=== PATIENT | female | born 1980 | race Two or more races ===

== ENCOUNTER → 2022-08-13 07:59 | Outpatient (BNVA) | payer OTHER, SELFPAY | PROVIDERS: PCP Internal Medicine; Visit Provider Psychiatry & Neurology Neurology | DX: G43.119 Migraine with aura, intractable, without status migrainosus (principal); M54.2 Cervicalgia | CPT/HCPCS: 99212 ==

== ENCOUNTER → 2023-03-04 13:57 | Outpatient (BNVA) | payer OTHER, SELFPAY | PROVIDERS: PCP Internal Medicine; Visit Provider Psychiatry & Neurology Neurology | DX: G43.119 Migraine with aura, intractable, without status migrainosus (principal); G43.719 Chronic migraine without aura, intractable, without status migrainosus; M54.2 Cervicalgia | CPT/HCPCS: 99212 ==

== ENCOUNTER 2023-04-13 18:44 | Outpatient (REF) | payer OTHER, SELFPAY ==
--- NOTE | ~2023-04-13 | MR_ITS ---
EXAMINATION: MR BRAIN WITHOUT CONTRAST CLINICAL INFORMATION: Chronic migraines. COMPARISON: None. TECHNIQUE: Multiplanar, multisequence imaging of the brain was performed without contrast. FINDINGS: No diffusion abnormalities are identified to suggest an acute or subacute infarct. The ventricles are normal in size. No mass effect or midline shift is seen. No brain parenchymal signal abnormality is noted. No extra-axial fluid collections are seen. The brainstem and cerebellum are normal. The gradient refocused acquisition is normal. The craniovertebral junction, marrow signal, and midline structures are normal. The major intracranial flow voids at the level of the [place] are preserved. The dural venous sinus flow voids are maintained. The mastoid air cells are well aerated. There is a small retention cyst in one of the left anterior ethmoid air cells. The remaining paranasal sinuses are fairly well aerated. MR/MR head/brain wo con IMPRESSION: Normal MRI of the brain. No acute process.
== END 2023-04-13 18:45 | disposition home or self-care (01) ==
LOC: HO.MRI 18:44
PROVIDERS: PCP Internal Medicine; Visit Provider Psychiatry & Neurology Neurology
DX: G43.719 Chronic migraine without aura, intractable, without status migrainosus (principal); H53.8 Other visual disturbances
CPT/HCPCS: 70551

== ENCOUNTER 2023-05-14 08:58 | Outpatient (AMB) | payer BC, OTHER, SELFPAY ==
--- NOTE | 2023-05-14 09:03 | MHC.OFFVIS ---
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 Pt reports daily pounding bitemporal and frontal headache that associated with photophobia, phonophobia. Pt is on magneisum 400 mg and amitriptyline 25 mg qHS, Vit B 2 400 mg q daily. Amitripyline did help her sleep better but not helpful to prevent migraine. She takes Ubrelvy 100 mg when she has bad migraine, but still takes time to relieve her headache. She needs to rest and sleep in dark room. PT neck did not help much. In the past she was tried on topiramate( blurry vision), nurtec( insurance did not approve ), sumatriptan(side effects), fioricet. She reports sleeps better with amiriptyline, mild snoring and has daytime fatigue. [facility] Medical History Blurry vision Chronic migraine without aura, intractable, without status migrainosus G6PD deficiency Hiatal hernia Surgical History H/O gastric sleeve H/O gastric sleeve Hx of hernia repair Family History Father Asthma Allergies HTN (hypertension) Mother Diabetes Father Depression Social History Alcohol intake: never Patient Tobacco Use Status: Never used Tobacco Review of Systems Const All systems reviewed & are unremarkable except as noted in HPI and below Physical Exam Vital Signs: Last Vital Signs Pulse 73 05/14/23 09:04 BP 102/70 05/14/23 09:04 Pulse Ox 97 07/27/23 09:04 Oxygen Delivery Method Room Air 05/14/23 09:04 Const General: cooperative, healthy appearing and comfortable Nutritional Appearance: obese Orientation/consciousness: patient oriented x3 Limitations: no limitations Eyes Pupils: Equal, round and reactive pupils present Neck Other: tightness and tenderness Neuro Other: left splenius and levator tightness laterocollis General: patient oriented x3, gait normal, tone normal, moves all extremities and no focal motor deficits Cranial nerves: Yes Facial sensation intact/muscles of mastication intact, Yes Equal, round and reactive pupils present, Yes Bilaterally intact EOM present, Yes Nystagmus not present, Yes Normal facial strength present, Yes Midline tongue present, Yes Symmetric palate elevation present, Yes Ability to bilaterally rotate head present and Yes Ability to bilaterally elevate shoulders present Cognition (Neuro): normal cognition Gait exam (Neuro): Normal gait present Motor exam (neuro): 5/5 motor strength present throughout Assessment & Plan Assessment & Plan (1) Migraine with aura, intractable, without status migrainosus: Code(s): G43.119 - Migraine with aura, intractable, without status migrainosus (2) Cervicalgia: Code(s): M54.2 - Cervicalgia (3) Chronic migraine without aura, intractable, without status migrainosus: Code(s): G43.719 - Chronic migraine without aura, intractable, without status migrainosus (4) Snoring: Code(s): R06.83 - Snoring (5) Daytime sleepiness: Code(s): R40.0 - Somnolence Plan Advised patient to continue to take amitriptyline 25 mg and magnesium 400 mg qhs. Continue to take vitamin B2 400mg qam and Ubrelvy 100 mg as needed to treat acute migraine. Start propranolol 10 mg BID. Patient did not tolerate triptans. Will consider Botox at the next visit. Advised patient to undergo home sleep study to r/o sleep apnea. Will f/u of sleep study result for appropriate treatment options. Orders: Orders RT home sleep study Today R06.83 - Snoring, R40.0 - Somnolence Medications: New propranolol 10 mg PO BID 30 days 60 tabs 1RF Coding Level of Care Code Est Pt Level 4 (84999) Diagnoses Migraine with aura, intractable, without status migrainosus G43.119 Cervicalgia M54.2 Chronic migraine without aura, intractable, without status migrainosus G43.719 Snoring R06.83 Daytime sleepiness R40.0
[2023-05-14 09:04] VITALS: BP 102/70; PULSE 73; O2SAT 97; BMI 36.8
== END 2023-05-14 09:27 | disposition home or self-care (01) ==
PROVIDERS: Visit Provider Nurse Practitioner Family
DX: G43.119 Migraine with aura, intractable, without status migrainosus (principal); M54.2 Cervicalgia; G43.719 Chronic migraine without aura, intractable, without status migrainosus; R06.83 Snoring; R40.0 Somnolence
CPT/HCPCS: 99214

== ENCOUNTER → 2023-05-14 08:58 | Outpatient (BNVA) | payer OTHER, SELFPAY | PROVIDERS: Visit Provider Nurse Practitioner Family | DX: G43.119 Migraine with aura, intractable, without status migrainosus (principal); G43.719 Chronic migraine without aura, intractable, without status migrainosus; M54.2 Cervicalgia; R06.83 Snoring; R40.0 Somnolence | CPT/HCPCS: 99212 ==

== ENCOUNTER → 2023-06-30 11:53 | Outpatient (REF) | payer BC, OTHER, SELFPAY | LOC: HO.SL 11:53 | PROVIDERS: PCP Internal Medicine; Visit Provider Nurse Practitioner Family | DX: G47.33 Obstructive sleep apnea (adult) (pediatric) (principal); R40.0 Somnolence; R06.83 Snoring | CPT/HCPCS: 95806 ==

== ENCOUNTER → 2023-06-30 13:22 | Outpatient (BNV) | payer BC, OTHER, SELFPAY | PROVIDERS: PCP Internal Medicine; Visit Provider Psychiatry & Neurology Neurology | DX: G47.33 Obstructive sleep apnea (adult) (pediatric) (principal) | CPT/HCPCS: 95806 ==

== ENCOUNTER 2023-07-23 08:10 | Outpatient (AMB) | payer BC, OTHER, SELFPAY ==
--- NOTE | 2023-07-23 08:15 | A.OFFVIS_ITS ---
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 Pt reports daily pounding bitemporal and frontal headache with migraine frequency has improved with propranolol BID. She has 4 headache with migraine days per week, but the headache intensity has not improved. Pt uses Ubrelvy 100 mg but still it takes time to relieve her headache. Resting in the dark room help to relieve headache. Pt is on magneisum 400 mg and amitriptyline 25 mg qHS, Vit B 2 400 mg q daily. In the past she was tried on topiramate( blurry vision), nurtec( insurance did not approve ), sumatriptan(side effects), fioricet. Pt underwent home sleep study. The home sleep study result was mild degree of sleep apnea. The AHI was 9/hr and oxygen sunitha was 76%. The total duration of O2 sat <88% was 11 min. APAP 5-23sbH6K ordered. [facility] Medical History Blurry vision Chronic migraine without aura, intractable, without status migrainosus Hiatal hernia G6PD deficiency Surgical History Hx of hernia repair H/O gastric sleeve H/O gastric sleeve Family History Father Asthma Allergies HTN (hypertension) Mother Diabetes Father Depression Social History (Updated 07/23/23 @ 08:19 by Mahnaz Faustin CMA) Alcohol intake: never Patient Tobacco Use Status: Never used Tobacco Use of substances other than those prescribed or required for medical reasons: No Review of Systems Const All systems reviewed & are unremarkable except as noted in HPI and below Physical Exam Const General: cooperative, healthy appearing and comfortable Nutritional Appearance: obese Orientation/consciousness: patient oriented x3 Limitations: no limitations Eyes Pupils: Equal, round and reactive pupils present Neck Other: tightness and tenderness Neuro Other: left splenius and levator tightness laterocollis General: patient oriented x3, gait normal, tone normal, moves all extremities and no focal motor deficits Cranial nerves: Yes Facial sensation intact/muscles of mastication intact, Yes Equal, round and reactive pupils present, Yes Bilaterally intact EOM present, Yes Nystagmus not present, Yes Normal facial strength present, Yes Midline tongue present, Yes Symmetric palate elevation present, Yes Ability to bilaterally rotate head present and Yes Ability to bilaterally elevate shoulders present Cognition (Neuro): normal cognition Gait exam (Neuro): Normal gait present Motor exam (neuro): 5/5 motor strength present throughout Assessment & Plan Assessment & Plan (1) Cervicalgia: Code(s): M54.2 - Cervicalgia (2) Chronic migraine without aura, intractable, without status migrainosus: Code(s): G43.719 - Chronic migraine without aura, intractable, without status migrainosus (3) Sleep apnea: Comment: Mild degree of sleep apnea. The AHI was 9/hr and oxygen sunitha was 76%. Code(s): G47.30 - Sleep apnea, unspecified Plan Advised patient to continue to take amitriptyline 25 mg and magnesium 400 mg qhs, vitamin B2 400 mg and propranolol 10 mg BID. Continue to take Ubrelvy 100 mg as needed to treat acute migraine. Advised patient to try Botox injection q 3 months for chronic migraine. Patient did not tolerate triptans. Start APAP 5-24gmO1M. Stressed compliance, use CPAP nightly and more than 4 hrs. Wt reduction advised. Medications: New onabotulinumtoxinA (Botox) Inject 155 units IM across forehead, scalp and neck 200 units IM ONCE 90 days 1 ea 6RF chronic migraine G43.719 - Chronic migraine without aura, intractable, without status migrainosus Coding Level of Care Code Est Pt Level 4 (73962) Diagnoses Cervicalgia M54.2 Chronic migraine without aura, intractable, without status migrainosus G43.719 Sleep apnea G47.30
[2023-07-23 08:20] VITALS: BP 110/70; PULSE 73; O2SAT 99
== END 2023-07-23 08:31 | disposition home or self-care (01) ==
PROVIDERS: PCP Internal Medicine; Visit Provider Nurse Practitioner Family
DX: M54.2 Cervicalgia (principal); G43.719 Chronic migraine without aura, intractable, without status migrainosus; G47.30 Sleep apnea, unspecified
CPT/HCPCS: 99214

== ENCOUNTER → 2023-07-23 08:10 | Outpatient (BNVA) | payer BC, OTHER, SELFPAY | PROVIDERS: PCP Internal Medicine; Visit Provider Nurse Practitioner Family | DX: G43.719 Chronic migraine without aura, intractable, without status migrainosus (principal); G47.30 Sleep apnea, unspecified; M54.2 Cervicalgia | CPT/HCPCS: 99212 ==

== ENCOUNTER 2023-10-20 09:11 | Outpatient (AMB) | payer BC, OTHER, SELFPAY ==
--- NOTE | 2023-10-20 09:20 | MHC.OFFVIS ---
Intake Vital Signs 10/20/23 09:34 Height 5 ft 6 in Weight 238 lb 6 oz BMI 38.5 BP 114/76 Blood Pressure Location Rt brachial Position Sitting Respiration 16 Pulse 72 Pulse Source Pulse Oximeter Pulse Oximetry (%) 97 Oxygen Delivery Method Room Air Intake Visit Reasons: Botox appt-Confirmed Intake Note: Pt presents for Botox injections. Quarantine Officer Required: No Allergies levofloxacin [From Levaquin] Allergy (Mild, Verified 10/20/23 09:20) Unknown Sulfa (Sulfonamide Antibiotics) Allergy (Mild, Verified 10/20/23 09:20) Unknown HPI HPI Comments History of Present Illness Details ? 43y/o female comes for treatment of migraines with botox. ??? Most frequent reported adverse reactions following injection of botox for chronic migraine include neck pain (9%), headache(5%), eyelid ptosis(4%), migraine(4%), muscular weakness(4%), musculuskeletal stiffness(4%), bronchitis(3%), injection site pain (3%), musculoskeletal pain(3%), myalgia(3%), facial paresis(2%), HTN(2%) and muscle spasms(2%) were discussed in detail. ??? Botulinum toxin typeA 200units Lot no [id number] expiration February 2026 was diluted with 4 cc of normal saline . ??? Muscles injected- ??? Frontalis 4 sites ??? Procerus 1 site ??? Publicity Director- 2 sites ??? Temporalis- 8 sites ??? Occipitalis- 6 sites ??? Cervical paraspinals- 4 sites ??? Trapezius- 6 sites- 10 units each ??? 5 units each in 31 site ??? Total use- 185units ??? Discarded-15units [facility] Medical History Blurry vision Chronic migraine without aura, intractable, without status migrainosus Hiatal hernia G6PD deficiency Surgical History Hx of hernia repair H/O gastric sleeve H/O gastric sleeve Family History Father Asthma Allergies HTN (hypertension) Mother Diabetes Father Depression Social History Alcohol intake: never Patient Tobacco Use Status: Never used Tobacco Physical Exam Vital Signs: Last Vital Signs Pulse 72 10/20/23 09:34 Resp 16 10/20/23 09:34 BP 114/76 10/20/23 09:34 Pulse Ox 97 10/20/23 09:34 Oxygen Delivery Method Room Air 10/20/23 09:34 BMI result Body Mass Index 38.5 Const General: cooperative, healthy appearing and comfortable Nutritional Appearance: obese Orientation/consciousness: patient oriented x3 Limitations: no limitations Neck Other: tightness and tenderness Neuro Other: left splenius and levator tightness laterocollis General: patient oriented x3, gait normal, tone normal, moves all extremities and no focal motor deficits Cognition (Neuro): normal cognition Gait exam (Neuro): Normal gait present Motor exam (neuro): 5/5 motor strength present throughout Office Procedures Botulinum toxin Injection 69564 - Migraine Procedure code (CPT) selection complete Office Meds onabotulinumtoxinA 200 unit solution for injection Performing Provider: Comfort Tariq MD Performing Location: [facility] [place] [facility] Administered by: Comfort Tariq MD on 10/20/23 10:13 Dose Route Admin Location Dispensed Lot Number Expiration Date [facility] [place]NOTE 2[place] [employer] 185 unit subcut 200 units [id number] 02/17/24 6882-9587-92 ALLERGAN/BOTOX Comments: see HPI Assessment & Plan Assessment & Plan (1) Chronic migraine without aura, intractable, without status migrainosus: Code(s): G43.719 - Chronic migraine without aura, intractable, without status migrainosus Plan Patient tolerated the procedure well she will call with any side effects Orders: Orders AMB Botulinum toxin Injection - Patient Supplied Today G43.719 - Chronic migraine without aura, intractable, without status migrainosus Coding Level of Care Code Est Pt Level 1 (19186) Diagnoses Chronic migraine without aura, intractable, without status migrainosus G43.719 CPT Codes Botox Injection - Botox 3: 30202 - Migraine ([id number])
[2023-10-20 09:34] VITALS: BP 114/76; PULSE 72; RESP 16; O2SAT 97; BMI 38.5
== END 2023-10-20 10:00 | disposition home or self-care (01) ==
PROVIDERS: PCP Internal Medicine; Visit Provider Psychiatry & Neurology Neurology
DX: G43.719 Chronic migraine without aura, intractable, without status migrainosus (principal)
CPT/HCPCS: 64615

== ENCOUNTER → 2023-10-20 09:11 | Outpatient (BNVA) | payer BC, OTHER, SELFPAY | PROVIDERS: PCP Internal Medicine; Visit Provider Psychiatry & Neurology Neurology | DX: G43.719 Chronic migraine without aura, intractable, without status migrainosus (principal) | CPT/HCPCS: 64615; 99211; J0585 ==

== ENCOUNTER 2024-01-25 08:06 | Outpatient (AMB) | payer OTHER, SELFPAY ==
--- NOTE | 2024-01-25 08:17 | A.OFFVIS_ITS ---
Intake Vital Signs 01/25/24 08:18 Height 5 ft 6 in Weight 238 lb BMI 38.4 BP 108/76 Blood Pressure Location Rt brachial Position Sitting Respiration 16 Pulse 77 Pulse Source Pulse Oximeter Pulse Oximetry (%) 98 Oxygen Delivery Method Room Air Intake Visit Reasons: Botox appt-CONF Intake Note: Pt presents for Botox injections. Syrup Mixer Required: No Allergies levofloxacin [From Levaquin] Allergy (Mild, Verified 01/25/24 08:17) Unknown Sulfa (Sulfonamide Antibiotics) Allergy (Mild, Verified 01/25/24 08:17) Unknown Medication List - Last Reconciled 01/25/24 by Comfort Tariq MD amitriptyline 25 mg PO BEDTIME bupropion HCl XL 150 mg PO QAM magnesium oxide 400 mg PO BEDTIME onabotulinumtoxinA (Botox) 200 units IM ONCE 90 days pantoprazole 40 mg PO BID propranolol 10 mg PO BID 30 days riboflavin (vitamin B2) 400 mg PO QAM ubrogepant (Ubrelvy) 100 mg PO ONCE PRN MDD 1 tab HPI HPI Comments History of Present Illness Details ? 43y/o female comes for treatment of migraines with botox. ??? Most frequent reported adverse reactions following injection of botox for chronic migraine include neck pain (9%), headache(5%), eyelid ptosis(4%), migraine(4%), muscular weakness(4%), musculuskeletal stiffness(4%), bronchitis(3%), injection site pain (3%), musculoskeletal pain(3%), myalgia(3%), facial paresis(2%), HTN(2%) and muscle spasms(2%) were discussed in detail. ??? Botulinum toxin typeA 200units Lot no [id number] expiration March 2026 was diluted with 4 cc of normal saline . ??? Muscles injected- ??? Frontalis 4 sites ??? Procerus 1 site ??? Sewing Machine Operator Plastic Zipper- 2 sites ??? Temporalis- 8 sites ??? Occipitalis- 6 sites ??? Cervical paraspinals- 4 sites ??? Trapezius- 6 sites- 10 units each ??? 5 units each in 31 site ??? Total use- 185units ??? Discarded-15units [facility] Medical History Blurry vision Chronic migraine without aura, intractable, without status migrainosus Hiatal hernia G6PD deficiency Surgical History Hx of hernia repair H/O gastric sleeve H/O gastric sleeve Family History Father Asthma Allergies HTN (hypertension) Mother Diabetes Father Depression Social History Alcohol intake: never Patient Tobacco Use Status: Never used Tobacco Physical Exam Vital Signs: Last Vital Signs Pulse 77 01/25/24 08:18 Resp 16 01/25/24 08:18 BP 108/76 01/25/24 08:18 Pulse Ox 98 01/25/24 08:18 Oxygen Delivery Method Room Air 01/25/24 08:18 BMI result Body Mass Index 38.4 Const General: cooperative, healthy appearing and comfortable Nutritional Appearance: obese Orientation/consciousness: patient oriented x3 Limitations: no limitations Neck Other: tightness and tenderness Neuro Other: left splenius and levator tightness laterocollis General: patient oriented x3, gait normal, tone normal, moves all extremities and no focal motor deficits Cognition (Neuro): normal cognition Gait exam (Neuro): Normal gait present Motor exam (neuro): 5/5 motor strength present throughout Office Procedures Botulinum toxin Injection 62654 - Migraine Procedure code (CPT) selection complete Office Meds onabotulinumtoxinA 200 unit solution for injection Performing Provider: Comfort Tariq MD [place] [facility] [place] [facility] Administered by: Comfort Tariq MD on 01/25/24 08:53 Dose Route Admin Location Dispensed Lot Number Expiration Date [facility] Auger Press Operator 185 unit IM 200 units [id number] 03/19/26 7110-8205-05 ALLERGAN/BOTOX Comments: see HPI Assessment & Plan Assessment & Plan (1) Chronic migraine without aura, intractable, without status migrainosus: Code(s): G43.719 - Chronic migraine without aura, intractable, without status migrainosus Plan Patient tolerated the procedure well she will call with any side effects Orders: Orders AMB Botulinum toxin Injection Today G43.719 - Chronic migraine without aura, intractable, without status migrainosus Medications: New onabotulinumtoxinA 200 units IM ONCE 1 ea 0RF migraine G43.719 - Chronic migraine without aura, intractable, without status migrainosus Coding Level of Care Code Est Pt Level 1 (29770) Diagnoses Chronic migraine without aura, intractable, without status migrainosus G43.719 CPT Codes Botox Injection - Botox 3: 68616 - Migraine ([id number])
[2024-01-25 08:18] VITALS: BP 108/76; PULSE 77; RESP 16; O2SAT 98; BMI 38.4
== END 2024-01-25 08:47 | disposition home or self-care (01) ==
PROVIDERS: PCP Internal Medicine; Visit Provider Psychiatry & Neurology Neurology
DX: G43.719 Chronic migraine without aura, intractable, without status migrainosus (principal)
CPT/HCPCS: 64615

== ENCOUNTER → 2024-01-25 08:06 | Outpatient (BNVA) | payer OTHER, SELFPAY | PROVIDERS: PCP Internal Medicine; Visit Provider Psychiatry & Neurology Neurology | DX: G43.719 Chronic migraine without aura, intractable, without status migrainosus (principal) | CPT/HCPCS: 64615; 99211; J0585 ==

== ENCOUNTER 2024-04-28 09:02 | Outpatient (AMB) | payer OTHER, SELFPAY ==
--- NOTE | 2024-04-28 09:15 | A.OFFVIS_ITS ---
Vital Signs 04/28/24 09:17 Height 5 ft 6 in Weight 238 lb BMI 38.4 BP 132/76 Blood Pressure Location Rt brachial Position Sitting Respiration 16 Pulse 79 Pulse Source Pulse Oximeter Pulse Oximetry (%) 99 Oxygen Delivery Method Room Air Intake Visit Reasons: Botox - Confirmed Intake Note: Pt presents to the office for Botox injections for migraines. County Director Required: No Allergies levofloxacin [From Levaquin] Allergy (Mild, Verified 04/28/24 09:16) Unknown Sulfa (Sulfonamide Antibiotics) Allergy (Mild, Verified 04/28/24 09:16) Unknown Medication List - Last Reconciled 04/28/24 by Comfort Tariq MD amitriptyline 25 mg PO BEDTIME bupropion HCl XL 150 mg PO QAM magnesium oxide 400 mg PO BEDTIME onabotulinumtoxinA (Botox) 200 units IM ONCE 90 days pantoprazole 40 mg PO BID propranolol 10 mg PO BID 90 days riboflavin (vitamin B2) 400 mg PO QAM rizatriptan take 1 tab at onset of headache; if no relief may repeat 1 tab after at least 2 hrs; max = 3 tabs/24 hr PO ubrogepant (Ubrelvy) 100 mg PO ONCE PRN MDD 1 tab HPI Comments Details: ? 44y/o female comes for treatment of migraines with botox. ??? Most frequent reported adverse reactions following injection of botox for chronic migraine include neck pain (9%), headache(5%), eyelid ptosis(4%), migraine(4%), muscular weakness(4%), musculuskeletal stiffness(4%), bronchitis(3%), injection site pain (3%), musculoskeletal pain(3%), myalgia(3%), facial paresis(2%), HTN(2%) and muscle spasms(2%) were discussed in detail. ??? Botulinum toxin typeA 200units Lot no [id number] expiration May 2026 was diluted with 4 cc of normal saline . ??? Muscles injected- ??? Frontalis 4 sites ??? Procerus 1 site ??? Double Cutter- 2 sites ??? Temporalis- 8 sites ??? Occipitalis- 6 sites ??? Cervical paraspinals- 4 sites ??? Trapezius- 6 sites- 10 units each ??? 5 units each in 31 site ??? Total use- 185units ??? Discarded-15units [facility] Medical History Blurry vision Chronic migraine without aura, intractable, without status migrainosus Hiatal hernia G6PD deficiency Surgical History Hx of hernia repair H/O gastric sleeve H/O gastric sleeve Family History Father Asthma Allergies HTN (hypertension) Mother Diabetes Father Depression Social History Alcohol intake: never Patient Tobacco Use Status: Never used Tobacco Physical Exam Vital Signs: Last Vital Signs Pulse 79 04/28/24 09:17 Resp 16 04/28/24 09:17 BP 132/76 04/28/24 09:17 Pulse Ox 99 04/28/24 09:17 Oxygen Delivery Method Room Air 04/28/24 09:17 BMI result Body Mass Index 38.4 Const General: cooperative, healthy appearing and comfortable Nutritional Appearance: obese Orientation/consciousness: patient oriented x3 Limitations: no limitations Neck Other: tightness and tenderness Neuro Other: left splenius and levator tightness laterocollis General: patient oriented x3, gait normal, tone normal, moves all extremities and no focal motor deficits Cognition (Neuro): normal cognition Gait exam (Neuro): Normal gait present Motor exam (neuro): 5/5 motor strength present throughout Office Procedures Botulinum toxin Injection 96216 - Migraine Procedure code (CPT) selection complete Office Meds onabotulinumtoxinA 200 unit solution for injection Performing Provider: Comfort Tariq MD Performing Location: [facility] [place] [facility] Administered by: Comfort Tariq MD on 04/28/24 09:49 Dose Route Admin Location Dispensed Lot Number Expiration Date [facility] Focused Factory Manager 185 unit subcut 200 units [id number] 05/19/26 3944-3043-40 ALLERGAN/BOTOX Comments: see HPI Assessment & Plan Assessment & Plan (1) Chronic migraine without aura, intractable, without status migrainosus: Code(s): G43.719 - Chronic migraine without aura, intractable, without status migrainosus Category: Medical Plan Patient tolerated the procedure well she will call with any side effects Orders: Orders AMB Botulinum toxin Injection Today G43.719 - Chronic migraine without aura, intractable, without status migrainosus Medications: New onabotulinumtoxinA 200 units subcut ONCE 1 ea 0RF migraine G43.719 - Chronic migraine without aura, intractable, without status migrainosus Coding Level of Care Code Est Pt Level 1 (82158) Diagnoses Chronic migraine without aura, intractable, without status migrainosus G43.719 CPT Codes Botox Injection - Botox 3: 14462 - Migraine ([id number])
[2024-04-28 09:17] VITALS: BP 132/76; PULSE 79; RESP 16; O2SAT 99; BMI 38.4
== END 2024-04-28 09:44 | disposition home or self-care (01) ==
PROVIDERS: PCP Internal Medicine; Visit Provider Psychiatry & Neurology Neurology
DX: G43.719 Chronic migraine without aura, intractable, without status migrainosus (principal)
CPT/HCPCS: 64615

== ENCOUNTER → 2024-04-28 09:02 | Outpatient (BNVA) | payer OTHER, SELFPAY | PROVIDERS: PCP Internal Medicine; Visit Provider Psychiatry & Neurology Neurology | DX: G43.719 Chronic migraine without aura, intractable, without status migrainosus (principal) | CPT/HCPCS: 64615; 99211; J0585 ==

== ENCOUNTER 2024-08-02 09:13 | Outpatient (AMB) | payer OTHER, SELFPAY ==
--- NOTE | 2024-08-02 09:18 | MHC.OFFVIS ---
Vital Signs 08/02/24 09:22 Height 5 ft 6 in Intake Visit Reasons: Botox Intake Note: Patient presents for Botox Allergies levofloxacin [From Levaquin] Allergy (Mild, Verified 08/02/24 09:21) Unknown Sulfa (Sulfonamide Antibiotics) Allergy (Mild, Verified 08/02/24 09:21) Unknown Medication List - Last Reconciled 08/02/24 by Comfort Tariq MD amitriptyline 25 mg PO BEDTIME bupropion HCl XL 150 mg PO QAM magnesium oxide 400 mg PO BEDTIME onabotulinumtoxinA (Botox) 200 units IM ONCE 90 days pantoprazole 40 mg PO BID propranolol 10 mg PO BID 90 days riboflavin (vitamin B2) 400 mg PO QAM rizatriptan take 1 tab at onset of headache; if no relief may repeat 1 tab after at least 2 hrs; max = 3 tabs/24 hr PO ubrogepant (Ubrelvy) 100 mg PO ONCE PRN MDD 1 tab HPI Comments Details: ? 44y/o female comes for treatment of migraines with botox .How long do the migraines last Intensity of migraine ER visits related to migraine Effectiveness of botox from last two treatment(s) How many migraine days since receiving treatment: Change? in intensity of migraine? Change in frequency of migraine? Change in use of acute medication for migraine? Change in quality of life? ER visits related to migraine? Explanation for any gaps in treatment- Have at least three months elapsed since last treatment (Last botox date - frequency of injections) 3 mths ??? Most frequent reported adverse reactions following injection of botox for chronic migraine include neck pain (9%), headache(5%), eyelid ptosis(4%), migraine(4%), muscular weakness(4%), musculuskeletal stiffness(4%), bronchitis(3%), injection site pain (3%), musculoskeletal pain(3%), myalgia(3%), facial paresis(2%), HTN(2%) and muscle spasms(2%) were discussed in detail. ??? Botulinum toxin typeA 200units Lot no [id number] expiration was diluted with 4 cc of normal saline . ??? Muscles injected- ??? Frontalis 4 sites ??? Procerus 1 site ??? Blind Installer- 2 sites ??? Temporalis- 8 sites ??? Occipitalis- 6 sites ??? Cervical paraspinals- 4 sites ??? Trapezius- 6 sites- 10 units each ??? 5 units each in 31 site ??? Total use- 185units ??? Discarded-15units [facility] Medical History Blurry vision Chronic migraine without aura, intractable, without status migrainosus Hiatal hernia G6PD deficiency Surgical History Hx of hernia repair H/O gastric sleeve H/O gastric sleeve Family History Father Asthma Allergies HTN (hypertension) Mother Diabetes Father Depression Social History Alcohol intake: never Patient Tobacco Use Status: Never used Tobacco Physical Exam Const General: cooperative, healthy appearing and comfortable Nutritional Appearance: obese Orientation/consciousness: patient oriented x3 Limitations: no limitations Neck Other: tightness and tenderness Neuro Other: left splenius and levator tightness laterocollis General: patient oriented x3, gait normal, tone normal, moves all extremities and no focal motor deficits Cognition (Neuro): normal cognition Gait exam (Neuro): Normal gait present Motor exam (neuro): 5/5 motor strength present throughout Office Procedures Botulinum toxin Injection 02843 - Migraine Procedure code (CPT) selection complete Office Meds onabotulinumtoxinA 200 unit solution for injection Performing Provider: Comfort Tariq MD Performing Location[place] [facility] Administered by: Comfort Tariq MD on 08/02/24 09:36 Dose Route Admin Location Dispensed Lot Number Expiration Date [facility] Wood Tank Erector 185 unit subcut 200 units [id number] 09/18/26 [id number] ALLERGAN/BOTOX Comments: see HPI Assessment & Plan Assessment & Plan (1) Chronic migraine without aura, intractable, without status migrainosus: Code(s): G43.719 - Chronic migraine without aura, intractable, without status migrainosus Category: Medical Plan Patient tolerated the procedure well she will call with any side effects Orders: Orders AMB Botulinum toxin Injection Today G43.719 - Chronic migraine without aura, intractable, without status migrainosus Medications: New onabotulinumtoxinA 200 units subcut ONCE 1 ea 0RF migraine G43.719 - Chronic migraine without aura, intractable, without status migrainosus Coding Level of Care Code Est Pt Level 1 (80359) Diagnoses Chronic migraine without aura, intractable, without status migrainosus G43.719 CPT Codes Botox Injection - Botox 3: 00142 - Migraine ([id number])
== END 2024-08-02 09:34 | disposition home or self-care (01) ==
PROVIDERS: PCP Internal Medicine; Visit Provider Psychiatry & Neurology Neurology
DX: G43.719 Chronic migraine without aura, intractable, without status migrainosus (principal)
CPT/HCPCS: 64615

== ENCOUNTER → 2024-08-02 09:13 | Outpatient (BNVA) | payer OTHER, SELFPAY | PROVIDERS: PCP Internal Medicine; Visit Provider Psychiatry & Neurology Neurology | DX: G43.719 Chronic migraine without aura, intractable, without status migrainosus (principal) | CPT/HCPCS: 64615; 99211; J0585 ==

== ENCOUNTER 2024-11-03 08:24 | Outpatient (AMB) | payer OTHER, SELFPAY ==
[2024-11-03 08:33] VITALS: BMI 38.4
--- NOTE | 2024-11-03 08:33 | MHC.OFFVIS ---
Vital Signs 11/03/24 08:33 Height 5 ft 6 in Weight 238 lb BMI 38.4 Intake Visit Reasons: Botox Intake Note: Patient presents for botox injection Allergies levofloxacin [From Levaquin] Allergy (Mild, Verified 11/03/24 08:34) Unknown Sulfa (Sulfonamide Antibiotics) Allergy (Mild, Verified 11/03/24 08:34) Unknown Medication List - Last Reconciled 11/03/24 by Comfort Tariq MD amitriptyline 25 mg PO BEDTIME bupropion HCl XL 150 mg PO QAM magnesium oxide 400 mg PO BEDTIME onabotulinumtoxinA (Botox) 200 units IM ONCE 90 days pantoprazole 40 mg PO BID propranolol 10 mg PO BID 90 days riboflavin (vitamin B2) 400 mg PO QAM rizatriptan take 1 tab at onset of headache; if no relief may repeat 1 tab after at least 2 hrs; max = 3 tabs/24 hr PO ubrogepant (Ubrelvy) 100 mg PO ONCE PRN MDD 1 tab HPI Comments Details: ? 44y/o female comes for treatment of migraines with botox .How long do the migraines last Intensity of migraine ER visits related to migraine Effectiveness of botox from last two treatment(s) How many migraine days since receiving treatment: Change? in intensity of migraine? Change in frequency of migraine? Change in use of acute medication for migraine? Change in quality of life? ER visits related to migraine? Explanation for any gaps in treatment- Have at least three months elapsed since last treatment (Last botox date - frequency of injections) 3 mths ??? Most frequent reported adverse reactions following injection of botox for chronic migraine include neck pain (9%), headache(5%), eyelid ptosis(4%), migraine(4%), muscular weakness(4%), musculuskeletal stiffness(4%), bronchitis(3%), injection site pain (3%), musculoskeletal pain(3%), myalgia(3%), facial paresis(2%), HTN(2%) and muscle spasms(2%) were discussed in detail. ??? Botulinum toxin typeA 200units Lot no [id number] expiration December2026 was diluted with 4 cc of normal saline . ??? Muscles injected- ??? Frontalis 4 sites ??? Procerus 1 site ??? Soil Technologist- 2 sites ??? Temporalis- 8 sites ??? Occipitalis- 6 sites ??? Cervical paraspinals- 4 sites ??? Trapezius- 6 sites- 10 units each ??? 5 units each in 31 site ??? Total use- 185units ??? Discarded-15units [facility] Medical History Blurry vision Chronic migraine without aura, intractable, without status migrainosus Hiatal hernia G6PD deficiency Surgical History Hx of hernia repair H/O gastric sleeve Family History Father Asthma Allergies HTN (hypertension) Mother Diabetes Father Depression Social History Alcohol intake: never Patient Tobacco Use Status: Never used Tobacco Physical Exam Vital Signs: BMI result Body Mass Index 38.4 Const General: cooperative, healthy appearing and comfortable Nutritional Appearance: obese Orientation/consciousness: patient oriented x3 Limitations: no limitations Neck Other: tightness and tenderness Neuro Other: left splenius and levator tightness laterocollis General: patient oriented x3, gait normal, tone normal, moves all extremities and no focal motor deficits Cognition (Neuro): normal cognition Gait exam (Neuro): Normal gait present Motor exam (neuro): 5/5 motor strength present throughout Office Procedures Botulinum toxin Injection 27698 - Migraine Procedure code (CPT) selection complete Office Meds onabotulinumtoxinA 200 unit solution for injection Performing Provider: Comfort Tariq MD Performing Location: [facility] [place] [facility] Administered by: Comfort Tariq MD on 11/03/24 08:59 Dose Route Admin Location Dispensed Lot Number Expiration Date [facility] Aides And Assistants Teacher 185 unit subcut 200 units [id number] ALLERGAN/BOTOX Comments: see hpi Assessment & Plan Assessment & Plan (1) Chronic migraine without aura, intractable, without status migrainosus: Code(s): G43.719 - Chronic migraine without aura, intractable, without status migrainosus Category: Medical Plan Patient tolerated the procedure well she will call with any side effects Orders: Orders AMB Botulinum toxin Injection Today G43.719 - Chronic migraine without aura, intractable, without status migrainosus Medications: New onabotulinumtoxinA 200 units subcut ONCE 1 ea 0RF migraine G43.719 - Chronic migraine without aura, intractable, without status migrainosus Coding Level of Care Code Est Pt Level 1 (80492) Diagnoses Chronic migraine without aura, intractable, without status migrainosus G43.719 CPT Codes Botox Injection - Botox 3: 21396 - Migraine ([id number])
== END 2024-11-03 08:53 | disposition home or self-care (01) ==
PROVIDERS: PCP Internal Medicine; Visit Provider Psychiatry & Neurology Neurology
DX: G43.719 Chronic migraine without aura, intractable, without status migrainosus (principal)
CPT/HCPCS: 64615

== ENCOUNTER → 2024-11-03 08:24 | Outpatient (BNVA) | payer OTHER, SELFPAY | PROVIDERS: PCP Internal Medicine; Visit Provider Psychiatry & Neurology Neurology | DX: G43.719 Chronic migraine without aura, intractable, without status migrainosus (principal) | CPT/HCPCS: 64615; 99211; J0585 ==

== ENCOUNTER 2025-02-07 08:35 | Outpatient (AMB) | payer OTHER, SELFPAY ==
--- NOTE | 2025-02-07 08:38 | A.OFFVIS_ITS ---
Vital Signs 02/07/25 08:39 Height 5 ft 6 in Weight 243 lb BMI 39.2 Pulse 69 Pulse Source Pulse Oximeter Pulse Oximetry (%) 100 Oxygen Delivery Method Room Air Intake Visit Reasons: Botox Intake Note: patient presents for Botox injection pharmacy supplied Allergies levofloxacin [From Levaquin] Allergy (Mild, Verified 02/07/25 08:41) Unknown Sulfa (Sulfonamide Antibiotics) Allergy (Mild, Verified 02/07/25 08:41) Unknown Medication List - Last Reconciled 02/07/25 by oCmfort Tariq MD amitriptyline 25 mg PO BEDTIME magnesium oxide 400 mg PO BEDTIME onabotulinumtoxinA (Botox) 200 units IM ONCE 90 days pantoprazole 40 mg PO BID propranolol 10 mg PO BID 90 days riboflavin (vitamin B2) 400 mg PO QAM rizatriptan take 1 tab at onset of headache; if no relief may repeat 1 tab after at least 2 hrs; max = 3 tabs/24 hr PO ubrogepant (Ubrelvy) 100 mg PO ONCE PRN MDD 1 tab HPI Comments Details: ? 44y/o female comes for treatment of migraines with botox .How long do the migraines last Intensity of migraine ER visits related to migraine Effectiveness of botox from last two treatment(s) How many migraine days since receiving treatment: Change? in intensity of migraine? Change in frequency of migraine? Change in use of acute medication for migraine? Change in quality of life? ER visits related to migraine? Explanation for any gaps in treatment- Have at least three months elapsed since last treatment (Last botox date - frequency of injections) 3 mths ??? Most frequent reported adverse reactions following injection of botox for chronic migraine include neck pain (9%), headache(5%), eyelid ptosis(4%), migraine(4%), muscular weakness(4%), musculuskeletal stiffness(4%), bronchitis(3%), injection site pain (3%), musculoskeletal pain(3%), myalgia(3%), facial paresis(2%), HTN(2%) and muscle spasms(2%) were discussed in detail. ??? Botulinum toxin typeA 200units Lot no [id number] expiration January 2027 was diluted with 4 cc of normal saline . ??? Muscles injected- ??? Frontalis 4 sites ??? Procerus 1 site ??? Protective Services Case Worker- 2 sites ??? Temporalis- 8 sites ??? Occipitalis- 6 sites ??? Cervical paraspinals- 4 sites ??? Trapezius- 6 sites- 10 units each ??? 5 units each in 31 site ??? Total use- 185units ??? Discarded-15units PFSH Medical History Blurry vision Chronic migraine without aura, intractable, without status migrainosus Hiatal hernia G6PD deficiency Surgical History Hx of hernia repair H/O gastric sleeve Family History Father Asthma Allergies HTN (hypertension) Mother Diabetes Father Depression Social History Alcohol intake: never Patient Tobacco Use Status: Never used Tobacco Physical Exam Vital Signs: Last Vital Signs Pulse 69 02/07/25 08:39 Pulse Ox 100 02/07/25 08:39 Oxygen Delivery Method Room Air 02/07/25 08:39 BMI result Body Mass Index 39.2 Const General: cooperative, healthy appearing and comfortable Nutritional Appearance: obese Orientation/consciousness: patient oriented x3 Limitations: no limitations Neck Other: tightness and tenderness Neuro Other: left splenius and levator tightness laterocollis General: patient oriented x3, gait normal, tone normal, moves all extremities and no focal motor deficits Cognition (Neuro): normal cognition Gait exam (Neuro): Normal gait present Motor exam (neuro): 5/5 motor strength present throughout Office Procedures Botulinum toxin Injection 03366 - Migraine Procedure code (CPT) selection complete Office Meds onabotulinumtoxinA 200 unit solution for injection Performing Provider: Comfort Tariq MD Performing Location: [facility] [place] [facility] Administered by: Comfort Tariq MD on 02/07/25 09:08 Dose Route Admin Location Dispensed Lot Number Expiration Date [facility] Registered Respiratory Technician 185 unit subcut 200 units [id number] ALLERGAN/BOTOX Comments: see HPI Assessment & Plan Assessment & Plan (1) Chronic migraine without aura, intractable, without status migrainosus: Code(s): G43.719 - Chronic migraine without aura, intractable, without status migrainosus Category: Medical Plan Patient tolerated the procedure well she will call with any side effects Orders: Orders AMB Botulinum toxin Injection Today G43.719 - Chronic migraine without aura, intractable, without status migrainosus Medications: New onabotulinumtoxinA 200 units subcut ONCE 1 ea 0RF migraine G43.719 - Chronic migraine without aura, intractable, without status migrainosus Coding Level of Care Code Est Pt Level 1 (49640) Diagnoses Chronic migraine without aura, intractable, without status migrainosus G43.719 CPT Codes Botox Injection - Botox 3: 07918 - Migraine ([id number])
[2025-02-07 08:39] VITALS: PULSE 69; O2SAT 100; BMI 39.2
--- OUTSIDE RECORDS SUMMARY | 2025-02-07 08:56 | XMS_ITS | Clinical Summary ---
Author Organization [facility] Address [address] [place] [address] Phone Care Team Providers Care Show Worker Name Role Phone Pauline Mcconnell MD Primary Care Provider [phone] Allergies Active Allergy Reactions Criticality Noted Date Comments Levofloxacin Itching Medium 11/25/2013 Other Itching Medium 02/09/2006 G6PD deficiency Sulfa Drugs Medications ONABOTULINUMTOX MADINA INJ Inject as directed. Q 3 mos for migraines with neuro Active ubrogepant (UBRELVY) 100 mg tablet Take 1 Tablet by mouth daily. Active amitriptyline (ELAVIL) 25 mg tablet Take 1 tablet (25 mg total) by mouth at bedtime. Active levonorgestreL (MIRENA) 21 mcg/24hr (up to 8 yrs) 52 mg IUD 1 Each by Intrauterine route once. Active magnesium oxide (MAG-OX) 400 mg (241.3 elemental magnesium) tablet Take 1 Tablet by mouth daily. Active propranoloL (INDERAL) 10 mg tablet Take 1 Tablet by mouth 3 times daily. Active pantoprazole (PROTONIX) 40 mg EC tabletIndicatio ns:Gastro-esoph ageal reflux disease without esophagitis TAKE 1 TABLET BY MOUTH 2 TIMES DAILY FOR 60 DAYS. 180 tablet 1 4 Active acetaminophen (TYLENOL) 500 mg tablet Take 2 tablets (1,000 mg total) by mouth every 8 (eight) hours. 180 tablet 4 Active simethicone (MYLICON) 80 mg chewable tablet Chew 1 tablet (80 mg total) every 6 (six) hours if needed for flatulence. 120 tablet 4 Active wheat dextrin 3 gram/3.5 gram powder in packet Take 1 packet by mouth 1 (one) time each day. 30 packet 4 Active oxyCODONE (ROXICODONE) 5 mg immediate release tabletIndicatio ns:S/P gastric bypass Take 1 tablet (5 mg total) by mouth every 6 (six) hours if needed for severe pain. Max Daily Amount: 20 mg 15 tablet 4 Active Active Problems Problem Noted Date Diagnosed Date Morbid obesity due to excess calories ([facility] V24, [facility] V28) 10/05/2024 Hx LEEP (loop electrosurgica l excision procedure), cervix, 08/09/2024 Overview (08/09/2024): Discussed potential for cx changes from procedure Class 3 severe obesity with body mass index (BMI) of 40.0 to 44.9 in adult 08/09/2024 Class 2 obesity with body ma ss index (BMI) of 38.0 to 38.9 in adult 08/09/2024 Closed fracture of proximal phalanx of right mcdonald d 07/09/2023 Nondisplaced fracture of mid dle phalanx of left little finger with routine healing 07/09/2023 Migraine 12/17/2020 COVID-19 virus infection 09/10/2020 Overview (08/05/2024): 09/07 positive test with loss of smell and taste 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 Encounters Date Type Department Care Team Description 12/29/2024 8:00 AM EDT Office Visit Bariatric Surgery - [address] [place] [phone] Polly Gonzalez MD Postoperative intestinal malabsorption (Primary Dx); Class 2 obesity due to excess calories with body mass index (BMI) of 39.0 to 39.9 in adult, unspecified whether serious comorbidity present from Last 3 Months Immunizations Name Administration Dates Next Due Hepatitis B (Xostiwz-U-Dwikz , Recombivax HB-Adult) 19yo and older 04/13/2012,03/08/2012,04/04/2009 Influenza Quadravalent, MDCK , 0.5ml, with preservative (Flucelvax) 6mo and older 08/27/2021 Influenza trivalent, with pr eservative (Fluzone; Afluria) 6mo and older 08/02/2014,07/12/2010 MMR, measles mumps and rubel la Live (Priorix; M-M-R II) 12mo and older 09/05/2021,03/05/2012 PPD Test 09/17/2015,03/05/2012 Tdap Tetanus diptheria acell ular pertussis (Boostrix; Adacel) 7yo and older 04/26/2024,03/05/2012,09/04/2010 Surgical History Surgery Date Site/Laterality Comments CERVICAL BIOPSY W/ LOOP ELECTRODE EXCISION PROCEDURE: AL CONIZATION CERVIX W/WO D&C RPR ELTRD EXC CHOLECYSTECTOMY PROCEDURE: HISTORICAL CHOLECYSTECTOMY CHOLECYSTECTOMY PROCEDURE: AL LAPAROSCOPY SURG CHOLECYSTECTOMY CARPAL TUNNEL RELEASE 03/31/2024 Left PROCEDURE: HISTORICAL CARPAL TUNNEL REL OTHER SURGICAL HISTORY PROCEDURE: AL GASTRIC RSTCV W/PRTL GASTRECTOMY 50-100 CM OTHER SURGICAL HISTORY 10/2023 PROCEDURE: OUTSIDE ENDOSCOPY; COMMENT: LA grade B esophagitis, small hiatal hernia and history of gastric sleeve. Biopsy of her esophagus showed inflammation but no intestinal metaplasia or dysplasia. EYE SURGERY BARIATRIC SURGERY Medical History Medical History Date Comments G6PD deficiency DX:G6PD deficien cy Chronic cholecystitis DX:Chronic cholecystitis Ugalde's palsy DX:Ugalde's palsy Migraine 12/17/2020 DX:Migraine GERD (gastroesophageal reflux disease) Cholelithiasis Chronic migraine with aura Family History Medical History Relation Name Comments Diabetes Mother gallstones Relation Name Status Comments Mother Social History Tobacco Use Types Packs/Day Years Used Date Smoking Tobacco: Never Smokeless Tobacco: Never Tobacco Cessation:Counseling Given: Not Answered Alcohol Use Standard Drinks/Week Comments No 0 (1 standard drink = 0.6 oz pur e alcohol) Interpersonal Safety Answer Date Record ed Physical Abuse 10/06/2024 Verbal Abuse 10/06/2024 Comments Unknown Sex and Gender Information Value Date Recorded Sex Assigned at Female 10/05/2024 9:31 AM EST Legal Sex Female 4:50 AM EST Gender Identity Female 10/05/2024 9:31 AM EST Sexual Orientation Straight 10/05/2024 9: 31 AM EST Obstetrics History Last Filed Vital Signs Vital Sign Reading Time Taken Comments Blood Pressure 90/55 12/29/2024 8:11 AM EDT Pulse 67 12/29/2024 8:11 AM EDT Temperature 36.6 ??C (97.8 ??F) 12/29/2024 8:11 AM ED T Respiratory Rate 20 10/06/2024 7:30 AM EST Oxygen Saturation 99% 10/06/2024 7:30 AM EST Inhaled Oxygen Concentration - - Weight 111 kg (245 lb) 12/29/2024 8:11 AM EDT Height 167.6 cm (5' 6 ) 12/29/2024 8:11 AM EDT Body Mass Index 39.54 12/29/2024 8:11 AM EDT Plan of Treatment Upcoming Encounters Date Type Department Care Team (Late st Contact Info) Description 03/28/2025 8:00 AM EDT Office Visit Bariatric Surgery - [place] [address] [phone] Polly Gonzalez MD [address] [facility] [address] [place] [address] Health Maintenance Due Date Last Done Comments Breast Cancer Screening 1980 Hepatitis B Vaccines (3 of 3 - 19+ 3-dose series) 06/08/2012 04/13/2012, 03/08/2012, 04/04/2009 Cervical Cancer Screening: Pap Smear 02/21/2013 02/21/2010 Hepatitis C Screening 09/27/2022 COVID-19 Vaccine ( season) 2024 10/08/2021, 03/02/2021, 02/02/2021 Social Influencers of Health Screening 10/28/2024 10/28/2023 Depression Screening 03/08/2025 03/08/2024 Influenza Vaccine (Season Ended) 2025 09/17/2022, 08/27/2021, 08/02/2014, Additional history exists Cholesterol Screening (Lipid Panel) 04/26/2029 04/26/2024, 04/26/2024 DTaP,Tdap,and Td Vaccines (4 - Td or Tdap) 04/26/2034 04/26/2024, 03/05/2012, 09/04/2010 HIV Screening Completed 11/10/2005 MMR Vaccines Aged Out 09/05/2021, 03/05/2012 No lo nger eligible based on patient's age to complete this topic HIB Vaccines Aged Out No longer eligi ble based on patient's age to complete this topic HPV Vaccines Aged Out No longer eligi ble based on patient's age to complete this topic Hepatitis A Vaccines Aged Out No long er eligible based on patient's age to complete this topic IPV Vaccines Aged Out No longer eligi ble based on patient's age to complete this topic Meningococcal ACWY Vaccine Aged Out N o longer eligible based on patient's age to complete this topic Meningococcal B Vaccine Aged Out No l onger eligible based on patient's age to complete this topic Pneumococcal Vaccine: Pediatrics (0 to 5 Years) and At-Risk Patients (6 to 64 Years) Aged Out No longer eligible based on patient's age to complete this topic RSV Immunization Patients Under 20 months Aged Out No longer eligible based on patient's age to complete this topic Varicella Vaccines Aged Out No longer eligible based on patient's age to complete this topic Procedures Procedure Name Priority Date/Time Associated Diagnosis Comments LIPID PANEL Routine 04/26/2024 PAP SMEAR Routine 02/21/2010 HIV SCREENING Routine 11/10/2005 from Last 3 Months or Most Recently Relevant to Health Maintenance Results * (ABNORMAL) Lipid panel (04/26/2024) LDL/HDL Ratio 3 0 - 4 Triglycerides 85 0 - 150 mg/dL Cholesterol 241(A) 0 - 200 mg/dL HDL 88 >=40 mg/dL LDL Cholesterol 136(A) 0 - 100 mg/dL Blood Venous blood specimen / Unknown Historical Provider LAB BLOOD ORDERABLES [facility] Result * Pap Smear (02/21/2010) Pap smear no interpretation abstracted Historical Provider HEALTH MAINTENANCE Final Result * HIV Screening (11/10/2005) HIV Screening abstracted Historical Provider HEALTH MAINTENANCE Final Result from Last 3 Months or Most Recently Relevant to Health Maintenance Insurance * Guarantor: Fabio Tuttle Account Type Relation to Patient Date of Phone Billing Address Personal/Family Self 1980 [phone] (Work) [address] [place] [phone] [facility] Advance Directives * Full Code - Default (Latest Code Status on File) Date Activated Date Inactivated Comments 10/05/2024 10:23 AM 10/06/2024 3:41 PM This is o rder is used when code status has not been discussed with the patient, or code status is otherwise unknown/unconfirmed To update the patient's code status, place a code status order. Do not modify or discontinue any currently active code status orders. Care Teams Show Worker Relationship Specialty Start Date End Date Pauline Mcconnell MD [address] [place] [id number] PCP - General 11/13/00
== END 2025-02-07 09:01 | disposition home or self-care (01) ==
LOC: HO.HSMS 08:36
PROVIDERS: PCP Internal Medicine; Visit Provider Psychiatry & Neurology Neurology
DX: G43.719 Chronic migraine without aura, intractable, without status migrainosus (principal)
CPT/HCPCS: 64615

== ENCOUNTER → 2025-02-07 08:35 | Outpatient (BNVA) | payer OTHER, SELFPAY | PROVIDERS: PCP Internal Medicine; Visit Provider Psychiatry & Neurology Neurology | DX: G43.719 Chronic migraine without aura, intractable, without status migrainosus (principal) | CPT/HCPCS: 64615; 99211; J0585 ==

== ENCOUNTER 2025-05-09 08:20 | Outpatient (AMB) | payer OTHER, SELFPAY ==
[2025-05-09 08:22] VITALS: BP 100/70; PULSE 82; O2SAT 98; BMI 38.4
--- NOTE | 2025-05-09 08:22 | A.OFFVIS_ITS ---
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 Required: No Accompanied by: Self / Same As Patient Allergies levofloxacin (From Levaquin) Allergy (Mild, Verified 05/09/25 08:23) Unknown Sulfa (Sulfonamide Antibiotics) Allergy (Mild, Verified 05/09/25 08:23) Unknown Medication List - Last Reconciled 05/09/25 by Comfort Tariq MD amitriptyline 25 mg PO BEDTIME magnesium oxide 400 mg PO BEDTIME onabotulinumtoxinA (Botox) 200 units IM ONCE 90 days pantoprazole 40 mg PO BID propranolol 10 mg PO BID 90 days riboflavin (vitamin B2) 400 mg PO QAM rizatriptan take 1 tab at onset of headache; if no relief may repeat 1 tab after at least 2 hrs; max = 3 tabs/24 hr PO tirzepatide (weight loss) (Zepbound) 2.5 mg subcut QWEEK ubrogepant (Ubrelvy) 100 mg PO ONCE PRN MDD 1 tab HPI Comments Details: ? 44y/o female comes for treatment of migraines with botox .How long do the migraines last Intensity of migraine ER visits related to migraine Effectiveness of botox from last two treatment(s) How many migraine days since receiving treatment: Change? in intensity of migraine? Change in frequency of migraine? Change in use of acute medication for migraine? Change in quality of life? ER visits related to migraine? Explanation for any gaps in treatment- Have at least three months elapsed since last treatment (Last botox date - frequency of injections) 3 mths ??? Most frequent reported adverse reactions following injection of botox for chronic migraine include neck pain (9%), headache(5%), eyelid ptosis(4%), migraine(4%), muscular weakness(4%), musculuskeletal stiffness(4%), bronchitis(3%), injection site pain (3%), musculoskeletal pain(3%), myalgia(3%), facial paresis(2%), HTN(2%) and muscle spasms(2%) were discussed in detail. ??? Botulinum toxin typeA 200units Lot no [id number] expiration July 2027 was diluted with 4 cc of normal saline . ??? Muscles injected- ??? Frontalis 4 sites ??? Procerus 1 site ??? Audiology Assistant- 2 sites ??? Temporalis- 8 sites ??? Occipitalis- 6 sites ??? Cervical paraspinals- 4 sites ??? Trapezius- 6 sites- 10 units each ??? 5 units each in 31 site ??? Total use- 185units ??? Discarded-15units [facility] Medical History Blurry vision Chronic migraine without aura, intractable, without status migrainosus Hiatal hernia G6PD deficiency Surgical History Hx of hernia repair H/O gastric sleeve Family History Father Asthma Allergies HTN (hypertension) Mother Diabetes Father Depression Social History Alcohol intake: never Patient Tobacco Use Status: Never used Tobacco Physical Exam Vital Signs: Last Vital Signs Pulse 82 05/09/25 08:22 BP 100/70 05/09/25 08:22 Pulse Ox 98 05/09/25 08:22 Oxygen Delivery Method Room Air 05/09/25 08:22 BMI result Body Mass Index 38.4 Const General: cooperative, healthy appearing and comfortable Nutritional Appearance: obese Orientation/consciousness: patient oriented x3 Limitations: no limitations Neck Other: tightness and tenderness Neuro Other: left splenius and levator tightness laterocollis General: patient oriented x3, gait normal, tone normal, moves all extremities and no focal motor deficits Cognition (Neuro): normal cognition Gait exam (Neuro): Normal gait present Motor exam (neuro): 5/5 motor strength present throughout Office Procedures Botulinum toxin Injection 69305 - Migraine Procedure code (CPT) selection complete Office Meds onabotulinumtoxinA 200 unit solution for injection Performing Provider: Comfort Tariq MD Performing Location: [facility] Administered by: Comfort Tariq MD on 05/09/25 08:48 Dose Route Admin Location Dispensed Lot Number Expiration Date [facility] Agriculture Specialist 185 unit subcut 200 units [id number] ALLERGAN /BOTOX Total Dispensed Waste 200 units 7.5 % Comments: see hpi Assessment & Plan Assessment & Plan (1) Chronic migraine without aura, intractable, without status migrainosus: Code(s): G43.719 - Chronic migraine without aura, intractable, without status migrainosus Category: Medical Plan Patient tolerated the procedure well she will call with any side effects Orders: Orders AMB Botulinum toxin Injection Today G43.719 - Chronic migraine without aura, intractable, without status migrainosus Coding Level of Care Code Est Pt Level 1 (62566) Diagnoses Chronic migraine without aura, intractable, without status migrainosus G43.719 CPT Codes Botox Injection - Botox 3: 60192 - Migraine ([id number])
--- OUTSIDE RECORDS SUMMARY | 2025-05-09 08:28 | XMS_ITS | Encounter Summary ---
Author Organization [facility] Address [address] [place] [address] Phone Care Team Providers Care Printer Assistant Name Role Phone Jair Eldridge MD Primary Care Provider [phone] Encounter Details Date Type Department Care Team (Late st Contact Info) Description 07/19/2024 Telephone [facility] Main Endoscopy [address] [place] [address] Adrienne Bro RN [address] [place] [address] [email or web address] Social History Tobacco Use Types Packs/Day Years Used Date Smoking Tobacco: Never Assessed Education Answer Date Recorded Are you interested in more education? Not on scotty e 05/17/2024 Are you concerned about learning? Not on file 05/17/2024 No 05/17/2024 No 05/17/2024 Digital Access Answer Date Recorded No 05/17/2024 No 05/17/2024 Reliable internet access at home? Not on file 05/17/2024 Device with a working camera? Not on file Comments Unknown Sex and Gender Information Value Date Recorded Sex Assigned at Not on file Legal Sex Female 9:36 AM EDT Gender Identity Not on file Sexual Orientation Not on file documented as of this encounter Plan of Treatment Not on file documented as of this encounter Visit Diagnoses Not on filedocumented in this encounter Care Teams Printer Assistant Relationship Specialty Start Date End Date Jair Eldridge MD [address] [place] [phone] [email or web address] PCP - General Gastroenterology 05/16/24 documented as of this encounter Additional Source Comments The information contained in this document represents components of the legal health record. It is not the complete legal health record.[facility]
--- OUTSIDE RECORDS SUMMARY | 2025-05-09 08:28 | XMS_ITS | Clinical Summary ---
Author Organization [facility] Address [address] [place] [address] Phone Care Team Providers Care Gmat Tutor Name Role Phone Pauline Mcconnell MD Primary Care Provider [phone] Allergies Active Allergy Reactions Criticality Noted Date Comments Levofloxacin Itching Medium 11/25/2013 Other Itching Medium 02/09/2006 G6PD deficiency Sulfa Drugs Medications ONABOTULINUMTOXIN A INJ Inject as directed. Q 3 mos [...] Tablet by mouth 3 times daily. Active acetaminophen (TYLENOL) 500 mg tablet Take 2 tablets (1,000 mg total) by mouth every 8 (eight) hours. 180 tablet 09/28/20 24 Active simethicone (MYLICON) 80 mg chewable tablet Chew 1 tablet (80 mg total) every 6 (six) hours if needed for flatulence. 120 tablet 09/28/20 24 Active wheat dextrin 3 gram/3.5 gram powder in packet Take 1 packet by mouth 1 (one) time each day. 30 packet 09/28/20 24 Active oxyCODONE (ROXICODONE) 5 mg immediate release tabletIndications :S/P gastric bypass Take 1 tablet (5 mg total) by mouth every 6 (six) hours if needed for severe pain. Max Daily Amount: 20 mg 15 tablet 10/06/20 24 Active pantoprazole (PROTONIX) 40 mg EC tabletIndications :Gastro-esophagea l reflux disease without esophagitis TAKE 1 TABLET BY MOUTH 2 TIMES DAILY FOR 60 DAYS. 180 tablet 1 03/01/20 25 Active ferrous sulfate 325 mg (65 mg elemental iron) tablet TAKE 1 TABLET (325 MG TOTAL) BY MOUTH ONCE DAILY DO NOT CRUSH, CHEW, OR SPLIT 30 tablet 03/30/20 25 Active cyanocobalamin, vitamin B-12, 1,000 mcg tablet, sublingualIndicat ions:Postgastrect aleena malabsorption Place 1 tablet under the tongue 1 (one) time each day. 90 tablet 04/05/20 25 025 Active ergocalciferol (VITAMIN D-2) 1,250 mcg (50,000 unit) capsuleIndication s:Vitamin D deficiency Take 1 capsule (50,000 Units total) by mouth 1 (one) time per week for 8 doses. 8 each 04/05/20 25 025 Active tirzepatide, weight loss, (Zepbound) 2.5 mg/0.5 mL injectionIndicati ons:Class 2 obesity due to excess calories with body mass index (BMI) of 39.0 to 39.9 in adult, unspecified whether serious comorbidity present Inject 0.5 mL (2.5 mg total) under the skin every 7 (seven) days for 4 doses. 2 mL 03/28/20 25 025 vitamin A 3,000 mcg (10,000 unit) tablet Take 1 tablet (10,000 Units total) by mouth 1 (one) time each day. 30 tablet 04/05/20 25 07/18/2 025 Active Problems Problem Noted Date Diagnosed Date Morbid obesity due to excess calories ([facility] V24, [facility] V28) 10/05/2024 Hx LEEP (loop electrosurgica l excision procedure), cervix, 08/09/2024 Overview (08/09/2024): Discussed potential for cx changes from procedure Class 3 severe obesity with body mass index (BMI) of 40.0 to 44.9 in adult ([facility] V24, [facility] V28) 08/09/2024 Class 2 obesity with body ma [...] Encounters Date Type Department Care Team Description 03/30/2025 Telephone Bariatric Surgery [address] [address] Polly Gonzalez MD 03/28/2025 8:00 AM EDT Office Visit Bariatric Surgery [address] [address] Polly Gonzalez MD Postgastrectomy malabsorption (Primary Dx); Vitamin D deficiency; Class 2 obesity due to excess calories with body mass index (BMI) of 39.0 to 39.9 in adult, unspecified whether serious comorbidity present 02/22/2025 Telephone Bariatric Surgery [address] [address] Polly Gonzalez MD from Last 3 Months Immunizations Name Administration Dates Next Due Hepatitis B (Beznmpg-R-Pvqrr , Recombivax HB-Adult) 19yo and older 04/13/2012,03/08/2012,04/04/2009 [...] CERVICAL BIOPSY W/ LOOP ELECTRODE EXCISION PROCEDURE: CA CONIZATION CERVIX W/WO D&C RPR ELTRD EXC CHOLECYSTECTOMY PROCEDURE: HISTORICAL CHOLECYSTECTOMY CHOLECYSTECTOMY PROCEDURE: CA LAPAROSCOPY SURG CHOLECYSTECTOMY CARPAL TUNNEL RELEASE 03/31/2024 Left PROCEDURE: HISTORICAL CARPAL TUNNEL REL OTHER SURGICAL HISTORY PROCEDURE: CA GASTRIC RSTCV W/PRTL GASTRECTOMY 50-100 CM OTHER [...] Sign Reading Time Taken Comments Blood Pressure 94/64 03/28/2025 8:10 AM EDT Pulse 66 03/28/2025 8:10 AM EDT Temperature 36.6 C (97.8 F) 03/28/2025 8:10 AM EDT Respiratory Rate 20 10/06/2024 7:30 AM EST Oxygen Saturation 99% 10/06/2024 7:30 AM EST Inhaled Oxygen Concentration - - Weight 112 kg (247 lb) 03/28/2025 8:10 AM EDT Height 167.6 cm (5' 6 ) 03/28/2025 8:10 AM EDT Body Mass Index 39.87 03/28/2025 8:10 AM EDT Plan of Treatment Upcoming Encounters Date Type Department Care Team (Late st Contact Info) Description 07/06/2025 8:15 AM EDT Office Visit Bariatric Surgery - [place] [address] [facility] [address] [place] [address] Polly Gonzalez MD [address] [facility] [address] [place] [address] Health Maintenance Due Date Last Done Comments Breast Cancer Screening 1980 Hepatitis B Vaccines (3 of 3 - 19+ 3-dose series) 06/08/2012 04/13/2012, 03/08/2012, 04/04/2009 Cervical Cancer Screening: Pap Smear 02/21/2013 02/21/2010 Colorectal Cancer Screening: Colonoscopy 09/27/2022 Hepatitis C Screening 09/27/2022 COVID-19 Vaccine ( - 2023- season) 2024 10/08/2021, 03/02/2021, 02/02/2021 Depression Screening 10/19/2024 Social Influencers of Health Screening 10/28/2024 10/28/2023 Influenza Vaccine (#1) 2025 , 08/27/2021, 08/02/2014, Additional history exists Cholesterol Screening [...] 5 Years) and At-Risk Patients (6 to 49 Years) Aged Out No longer eligible based on patient's age to complete this topic RSV Immunization Patients Under 20 months Aged Out No longer eligible based on patient's age to complete this topic Varicella Vaccines Aged Out No longer eligible based on patient's age to complete this topic Procedures Procedure Name Priority Date/Time Associated Diagnosis Comments VITAMIN B12 Routine 03/27/2025 7:49 AM EDT Postoperative intestinal malabsorption ZINC Routine 03/27/2025 7:49 AM EDT Postoperative intestinal malabsorption VITAMIN D 25 HYDROXY Routine 03/27/2025 7:49 AM EDT Postoperative intestinal malabsorption VITAMIN B6 Routine 03/27/2025 7:49 AM EDT Postoperative intestinal malabsorption VITAMIN B1 Routine 03/27/2025 7:49 AM EDT Postoperative intestinal malabsorption VITAMIN A Routine 03/27/2025 7:49 AM EDT Postoperative intestinal malabsorption IRON AND TIBC Routine 03/27/2025 7:49 AM EDT Postoperative intestinal malabsorption FOLATE Routine 03/27/2025 7:49 AM EDT Postoperative intestinal malabsorption CALCIUM Routine 03/27/2025 7:49 AM EDT Postoperative intestinal malabsorption ALBUMIN Routine 03/27/2025 7:49 AM EDT Postoperative intestinal malabsorption LIPID PANEL Routine 04/26/2024 HM PAP SMEAR Routine 02/21/2010 HM HIV SCREENING Routine 11/10/2005 from Last 3 Months or Most Recently Relevant to Health Maintenance Results * (ABNORMAL) Iron and TIBC (03/27/2025 7:49 AM EDT) Iron 32(L) 40 - 150 mcg/dL LAB CHEMISTRY METHOD 03/27/2025 9:11 AM EDT [facility] TIBC 421 250 - 450 mcg/dL LAB CHEMISTRY METHOD 03/27/2025 9:11 AM EDT [facility] Iron Saturation 8(L) 15 - 50 % LAB CHEMISTRY METHOD 03/27/2025 9:11 AM EDT [facility] Blood Venous blood specimen / Unknown Venipuncture / Unknown 03/27/2025 7:49 AM EDT 03/27/2025 8:32 AM EDT us Polly Gonzalez MD LAB BLOOD ORDERABLES Final R esult [facility] [address] [place] [address], [place] [phone] * Zinc (03/27/2025 7:49 AM EDT) Zinc 68 60 - 130 ug/dL 2025 1:10 PM EDT [facility] Comment: Elevated results may be due to sample collected in a non-certified trace element-free tube. This test was developed and the performance characteristics determined by [facility]. It has not been cleared or approved by the FDA. The laboratory is regulated under CLIA as qualified to perform high-complexity testing. This test is used for patient testing purposes. It should not be regarded as investigational or for research. Test performed at [facility], [address] [place] [address] Marichuy Art MD, PhD - Delinquency Prevention Social Worker Blood Venous blood specimen / Unknown Venipuncture / Unknown 03/27/2025 7:49 AM EDT 03/27/2025 8:31 AM EDT Polly Gonzalez MD LAB BLOOD ORDERABLES Final R esult Performing Organization Address City/[facility]/ZIP Co de Phone Number [facility] [address] [place] [address] * (ABNORMAL) Vitamin A (03/27/2025 7:49 AM EDT) [facility] Vitamin A 34(L) 38 - 106 ug/dL 03/30/2025 6:13 AM EDT [facility] Comment: This test was developed and the performance characteristics determined by [facility]. It has not been cleared or approved by the FDA. The laboratory is regulated under CLIA as qualified to perform high-complexity testing. This test is used for patient testing purposes. It should not be regarded as investigational or for research. Test performed at [facility], [address] [place] [address] Marichuy Art MD, PhD - Delinquency Prevention Social Worker Blood Venous blood specimen / Unknown Venipuncture / Unknown 03/27/2025 7:49 AM EDT 03/27/2025 8:31 AM EDT Polly Gonzalez MD LAB BLOOD ORDERABLES Final R esult [facility] [address] [place] [address] * (ABNORMAL) Vitamin D 25 hydroxy (03/27/2025 7:49 AM EDT) Pathologist [facility] Vit D, 25-Hydroxy 6.3(L) 30.0 - 80.0 ng/mL LAB CHEMISTRY METHOD 03/27/2025 11:19 AM EDT [facility] Blood Venous blood specimen / Unknown Venipuncture / Unknown 03/27/2025 7:49 AM EDT 03/27/2025 8:32 AM EDT Polly Gonzalez MD LAB BLOOD ORDERABLES Final R esult [facility] [address] [place] [address], [place] [phone] * Vitamin B1 (03/27/2025 7:49 AM EDT) [facility] Vitamin B1 Whole Blood 44 38 - 122 ug/L 03/30/2025 6:55 AM EDT [facility] Comment: This test was developed and the performance characteristics determined by [facility]. It has not been cleared or approved by the FDA. The laboratory is regulated under CLIA as qualified to perform high-complexity testing. This test is used for patient testing purposes. It should not be regarded as investigational or for research. Test performed at [facility], [address] , [place] [address] Marichuy Art MD, PhD - Delinquency Prevention Social Worker Blood Venous blood specimen / Unknown Venipuncture / Unknown 03/27/2025 7:49 AM EDT 03/27/2025 8:31 AM EDT us Polly Gonzalez MD LAB BLOOD ORDERABLES Final R esult [facility] [address] [place] [address] * Vitamin B6 (03/27/2025 7:49 AM EDT) [facility] Vitamin B6 (Pyridoxine) Level 14 5 - 50 ug/L 03/30/2025 9:01 AM EDT [facility] Comment: This test was developed and the performance characteristics determined by [facility]. It has not been cleared or approved by the FDA. The laboratory is regulated under CLIA as qualified to perform high-complexity testing. This test is used for patient testing purposes. It should not be regarded as investigational or for research. Test performed at [facility], [address] , [place] [address] Marichuy Art MD, PhD - Delinquency Prevention Social Worker Blood Venous blood specimen / Unknown Venipuncture / Unknown 03/27/2025 7:49 AM EDT 03/27/2025 8:31 AM EDT Polly Gonzalez MD LAB BLOOD ORDERABLES Final R esult Performing Organization Address City/[facility]/ZIP Co de Phone Number [facility] [address] [place] [address] * Folate (03/27/2025 7:49 AM EDT) Pathologist [facility] Folate 7.0 2.8 - 17.0 ng/ml LAB CHEMISTRY METHOD 03/27/2025 9:36 AM EDT [facility] Blood Venous blood specimen / Unknown Venipuncture / Unknown 03/27/2025 7:49 AM EDT 03/27/2025 8:32 AM EDT Polly Gonzalez MD LAB BLOOD ORDERABLES Final R esult [facility] [address] [place] [address], * (ABNORMAL) Vitamin B12 (03/27/2025 7:49 AM EDT) Vitamin B-12 239(L) 250 - 900 pcg/mL LAB CHEMISTRY METHOD 03/27/2025 9:36 AM EDT [facility] Blood Venous blood specimen / Unknown Venipuncture / Unknown 03/27/2025 7:49 AM EDT 03/27/2025 8:32 AM EDT us Polly Gonzalez MD LAB BLOOD ORDERABLES Final R esult [facility] [address] [place] [address], [place] [phone] * Calcium (03/27/2025 7:49 AM EDT) [facility] Calcium 9.4 8.5 - 10.5 mg/dL LAB CHEMISTRY METHOD 03/27/2025 9:11 AM EDT [facility] Blood Venous blood specimen / Unknown Venipuncture / Unknown 03/27/2025 7:49 AM EDT 03/27/2025 8:32 AM EDT us Polly Gonzalez MD LAB BLOOD ORDERABLES Final R esult Performing Organization Address City/[facility]/ZIP Co de Phone Number [facility] [address] [place] [address], [place] [phone] * Albumin (03/27/2025 7:49 AM EDT) [facility] Albumin 3.4 3.2 - 5.0 g/dL LAB CHEMISTRY METHOD 03/27/2025 9:11 AM EDT [facility] Blood Venous blood specimen / Unknown Venipuncture / Unknown 03/27/2025 7:49 AM EDT 03/27/2025 8:32 AM EDT us Polly Gonzalze MD LAB BLOOD ORDERABLES Final R esult [facility] [address] [place] [address], [place] [phone] * (ABNORMAL) Lipid panel (04/26/2024) [facility] LDL/HDL Ratio 3 0 - 4 Triglycerides 85 0 - 150 mg/dL Cholesterol 241(A) 0 - 200 mg/dL HDL 88 >=40 mg/dL LDL Cholesterol 136(A) 0 - 100 mg/dL Blood Venous blood specimen / Unknown [facility] Provider LAB BLOOD ORDERABLES Miracle l Result * Pap Smear (02/21/2010) Pathologist Replaced by [facility] Pap smear no interpretation abstracted [facility] Provider HEALTH MAINTENANCE Final Result * HIV Screening (11/10/2005) [facility] HIV Screening abstracted [facility] Provider HEALTH MAINTENANCE Final Result from Last 3 Months or Most Recently Relevant to Health Maintenance Insurance * Guarantor: Fabio Tuttle Account Type Relation to Patient Date of Phone Billing Address Personal/Family Self 1980 [phone] (Work) [address] [place] [phone] [facility] Daily Secret PLAN Advance Directives * Full Code - [...] currently active code status orders. Care Teams Gmat Tutor Relationship Specialty Start Date End Date Pauline Mcconnell MD [address] [place] [id number] PCP - General 11/13/00
== END 2025-05-09 08:49 | disposition home or self-care (01) ==
LOC: HO.HSMS 08:21
PROVIDERS: PCP Internal Medicine; Visit Provider Psychiatry & Neurology Neurology
DX: G43.719 Chronic migraine without aura, intractable, without status migrainosus (principal)
CPT/HCPCS: 64615

== ENCOUNTER → 2025-05-09 08:20 | Outpatient (BNVA) | payer OTHER, SELFPAY | PROVIDERS: PCP Internal Medicine; Visit Provider Psychiatry & Neurology Neurology | DX: G43.719 Chronic migraine without aura, intractable, without status migrainosus (principal); D75.A Glucose-6-phosphate dehydrogenase (G6PD) deficiency without anemia | CPT/HCPCS: 64615; 99211; J0585 ==

== ENCOUNTER → 2025-06-29 13:55 | Outpatient (BNVA) | payer OTHER, SELFPAY | PROVIDERS: PCP Internal Medicine; Visit Provider Emergency Medicine | DX: S60.031A Contusion of right middle finger without damage to nail, initial encounter (principal); W23.2XXA Caught, crushed, jammed or pinched between a moving and stationary object, initial encounter; Z02.79 Encounter for issue of other medical certificate | CPT/HCPCS: 73140; 99203 ==

== ENCOUNTER 2025-08-15 07:37 | Outpatient (AMB) | payer OTHER, SELFPAY ==
--- NOTE | 2025-08-15 07:38 | MHC.OFFVIS ---
Vital Signs 08/15/25 07:39 Height 5 ft 6 in Weight 209 lb 4 oz BMI 33.8 BP 102/76 Blood Pressure Location Rt brachial Position Sitting Pulse 73 Pulse Source Pulse Oximeter Pulse Oximetry (%) 100 Oxygen Delivery Method Room Air Intake Visit Reasons: Botox Intake Note: Botox 200 B+B Market Research Interviewer Required: No Accompanied by: Partner Allergies levofloxacin (From Levaquin) Allergy (Mild, Verified 08/15/25 07:39) Unknown Sulfa (Sulfonamide Antibiotics) Allergy (Mild, Verified 08/15/25 07:39) Unknown Medication List - Last Reconciled 08/15/25 by Comfort Tariq MD acetaminophen 1,000 mg PO Q8H amitriptyline 25 mg PO BEDTIME ferrous sulfate 325 mg PO DAILY magnesium oxide 400 mg PO BEDTIME onabotulinumtoxinA (Botox) 200 units IM ONCE 90 days propranolol 10 mg PO BID 90 days riboflavin (vitamin B2) 400 mg PO QAM rizatriptan take 1 tab at onset of headache; if no relief may repeat 1 tab after at least 2 hrs; max = 3 tabs/24 hr PO tirzepatide (Mounjaro) 7.5 mg subcut QWEEK ubrogepant (Ubrelvy) 100 mg PO ONCE PRN MDD 1 tab HPI Comments Details: ? 45y/o female comes for treatment of migraines with botox .How long do the migraines last Intensity of migraine ER visits related to migraine Effectiveness of botox from last two treatment(s) How many migraine days since receiving treatment: Change? in intensity of migraine? Change in frequency of migraine? Change in use of acute medication for migraine? Change in quality of life? ER visits related to migraine? Explanation for any gaps in treatment- Have at least three months elapsed since last treatment (Last botox date - frequency of injections) 3 mths ??? Most frequent reported adverse reactions following injection of botox for chronic migraine include neck pain (9%), headache(5%), eyelid ptosis(4%), migraine(4%), muscular weakness(4%), musculuskeletal stiffness(4%), bronchitis(3%), injection site pain (3%), musculoskeletal pain(3%), myalgia(3%), facial paresis(2%), HTN(2%) and muscle spasms(2%) were discussed in detail. ??? Botulinum toxin typeA 200units Lot no [id number] expiration Sep 2027 was diluted with 4 cc of normal saline . ??? Muscles injected- ??? Frontalis 4 sites ??? Procerus 1 site ??? Library Circulation Department Chief- 2 sites ??? Temporalis- 8 sites ??? Occipitalis- 6 sites ??? Cervical paraspinals- 4 sites ??? Trapezius- 6 sites- 10 units each ??? 5 units each in 31 site ??? Total use- 185units ??? Discarded-15units [facility] Medical History Blurry vision Chronic migraine without aura, intractable, without status migrainosus Hiatal hernia G6PD deficiency Surgical History Hx of hernia repair H/O gastric sleeve Family History Father Asthma Allergies HTN (hypertension) Mother Diabetes Father Depression Social History Alcohol intake: never Patient Tobacco Use Status: Never used Tobacco Physical Exam Vital Signs: Last Vital Signs Pulse 73 08/15/25 07:39 BP 102/76 08/15/25 07:39 Pulse Ox 100 08/15/25 07:39 Oxygen Delivery Method Room Air 08/15/25 07:39 BMI result Body Mass Index 33.8 Const General: cooperative, healthy appearing and comfortable Nutritional Appearance: obese Orientation/consciousness: patient oriented x3 Limitations: no limitations Neck Other: tightness and tenderness Neuro Other: left splenius and levator tightness laterocollis General: patient oriented x3, gait normal, tone normal, moves all extremities and no focal motor deficits Cognition (Neuro): normal cognition Gait exam (Neuro): Normal gait present Motor exam (neuro): 5/5 motor strength present throughout Office Procedures Botulinum toxin Injection 99044 - Migraine Procedure code (CPT) selection complete Office Meds onabotulinumtoxinA 200 unit solution for injection Performing Provider: Comfort Tariq MD Performing Location: [facility] Administered by: Comfort Tariq MD on 08/15/25 08:08 Dose Route Admin Location Dispensed Lot Number Expiration Date NDC Super[employer] 185 unit subcut 200 units [id number] ALLERGAN/BOTOX Total Dispensed Waste 200 units 7.5 % Comments: see HPI Assessment & Plan Assessment & Plan (1) Chronic migraine without aura, intractable, without status migrainosus: Code(s): G43.719 - Chronic migraine without aura, intractable, without status migrainosus Category: Medical Plan Patient tolerated the procedure well she will call with any side effects Orders: Orders AMB Botulinum toxin Injection Today G43.719 - Chronic migraine without aura, intractable, without status migrainosus Medications: Refilled rizatriptan take 1 tab at onset of headache; if no relief may repeat 1 tab after at least 2 hrs; max = 3 tabs/24 hr PO 14 tabs 0RF Coding Level of Care Code Est Pt Level 1 (43545) Diagnoses Chronic migraine without aura, intractable, without status migrainosus G43.719 CPT Codes Botox Injection - Botox 3: 04574 - Migraine ([id number])
[2025-08-15 07:39] VITALS: BP 102/76; PULSE 73; O2SAT 100; BMI 33.8
--- OUTSIDE RECORDS SUMMARY | 2025-08-15 07:40 | XMS_ITS | Clinical Summary ---
Author Organization [facility] Address [address] [place] [address] Phone Care Team Providers Care Assistant Professor Of Marine Biology Name Role Phone Jair Eldridge MD Primary Care Provider [phone] Social History Tobacco Use Types Packs/Day Years [...] on file Sexual Orientation Not on file Plan of Treatment Not on file Medical Devices Not on file Insurance [email or web address] [place] [address] [place] [address] [place] [address] [place] [address] [place] [place] [address] [place] [address] [employer] [facility] Care Teams Assistant Professor Of Marine Biology Relationship Specialty Start Date End Date Jair Eldridge MD [address] [place] [phone] [email or web address] PCP - General Gastroenterology 05/16/24 Additional Source Comments The information contained in this document represents components of the legal health record. It is not the complete legal health record.[facility]
--- OUTSIDE RECORDS SUMMARY | 2025-08-15 07:40 | XMS_ITS | Clinical Summary ---
Author Organization [facility] Address [address] [place] [address] Phone Care Team Providers Care Retail Security Professional Name Role Phone Pauline Mcconnell MD Primary Care Provider [phone] Allergies Active Allergy Reactions Criticality Noted Date [...] 24 Active pantoprazole (PROTONIX) 40 mg EC tabletIndicatio ns:Gastro-esoph ageal reflux disease without esophagitis TAKE 1 TABLET BY MOUTH 2 TIMES DAILY FOR 60 DAYS. 180 tablet 1 03/01/20 25 Active ferrous sulfate 325 mg (65 mg elemental iron) tablet TAKE 1 TABLET (325 MG TOTAL) BY MOUTH ONCE DAILY DO NOT CRUSH, CHEW, OR SPLIT 90 tablet 1 05/17/20 25 Active tirzepatide, weight loss, (Zepbound) 7.5 mg/0.5 mL injectionIndica tions:Class 2 obesity due to excess calories with body mass index (BMI) of 35.0 to 35.9 in adult, unspecified whether serious comorbidity present Inject 0.5 mL (7.5 mg total) under the skin every 7 (seven) days. 2 mL 1 07/19/20 25 025 Active tirzepatide, weight loss, (Zepbound) 7.5 mg/0.5 mL injection Inject 0.5 mL (7.5 mg total) under the skin every 7 (seven) days. 2 mL 06/14/20 25 025 Discontin ued(Reord er) Active Problems Problem Noted Date Diagnosed Date Morbid obesity due to excess calories ([facility] V24, [facility] V28) 10/05/2024 Hx LEEP (loop electrosurgica l excision procedure), cervix, 08/09/2024 Overview (08/09/2024): Discussed potential for cx changes from procedure Class 3 severe obesity with body mass index (BMI) of 40.0 to 44.9 in adult ([facility] V24, [facility] V28) 08/09/2024 Class 2 obesity with body [...] Encounters Date Type Department Care Team Description 07/18/2025 Telephone Bariatric Surgery [address] [address] Polly Gonzalez MD 07/06/2025 8:15 AM EDT Office Visit Bariatric Surgery [address] [address] Polly Gonzalez MD Intestinal malabsorption following gastrectomy (Primary Dx); Class 2 obesity due to excess calories with body mass index (BMI) of 35.0 to 35.9 in adult, unspecified whether serious comorbidity present 06/13/2025 [place] [facility] [address] [address] Polly Gonzalez MD 05/20/2025 Telephone Bariatric Surgery [address] [address] Polly Gonzalez MD from Last 3 Months Immunizations Immunization Administration Dates Next Due Hepatitis B (Anqzdgn-E-Qsuyc , Recombivax HB-Adult) 19yo and older 04/13/2012,03/08/2012,04/04/2009 [...] Safety Answer Date Record ed Physical Abuse Unrecognized value 10/06/2024 Verbal Abuse Unrecognized value 10/06/2024 Comments Unknown Sex and Gender Information Value Date Recorded Sex Assigned at Female 10/05/2024 9:31 AM EST Legal Sex Female 4:50 AM EST Gender Identity Female 10/05/2024 9:31 AM EST Sexual Orientation Straight 10/05/2024 9: 31 AM EST Obstetrics History Last Filed Vital Signs Vital Sign Reading Time Taken Comments Blood Pressure 96/69 07/06/2025 8:46 AM EDT Pulse 83 07/06/2025 8:46 AM EDT Temperature 36.6 C (97.8 F) 07/06/2025 8:46 AM EDT Respiratory Rate 20 10/06/2024 7:30 AM EST Oxygen Saturation 99% 10/06/2024 7:30 AM EST Inhaled Oxygen Concentration - - Weight 101 kg (222 lb) 07/06/2025 8:46 AM EDT Height 167.6 cm (5' 6 ) 07/06/2025 8:46 AM EDT Body Mass Index 35.83 07/06/2025 8:46 AM EDT Plan of Treatment Upcoming Encounters Date Type Department Care Team (Late st Contact Info) Description 12/19/2025 2:00 PM EST Office Visit Bariatric Surgery - [address] [place] [address] Polly Gonzalez MD [address] [place] [phone] Health Maintenance Due Date Last Done Comments Breast Cancer Screening 1980 Colorectal Cancer Screening: Colonoscopy 1980 HPV Vaccines (1 - 3-dose SCDM series) 2007 Hepatitis B Vaccines (3 of 3 - 19+ 3-dose series) 06/08/2012 04/13/2012, 03/08/2012, 04/04/2009 Cervical Cancer Screening: Pap Smear 02/21/2013 02/21/2010 Hepatitis C Screening 09/27/2022 Depression Screening 10/19/2024 Social Influencers of Health Screening 10/28/2024 10/28/2023 COVID-19 Vaccine ( season) 2025 10/08/2021, 03/02/2021, 02/02/2021 Influenza Vaccine (#1) 2025 2, 08/27/2021, 08/02/2014, Additional history exists Cholesterol Screening (Lipid Panel) 04/26/2029 04/26/2024, 04/26/2024 DTaP,Tdap,and Td Vaccines (4 - Td or Tdap) 04/26/2034 04/26/2024, 03/05/2012, 09/04/2010 RSV Immunization Adult Patients (1 - 1-dose 75+ series) 2055 HIV Screening Completed 11/10/2005 MMR Vaccines Aged [...] Maintenance Results * (ABNORMAL) Lipid panel (04/26/2024) [facility] LDL/HDL Ratio 3 0 - 4 Triglycerides 85 0 - 150 mg/dL Cholesterol 241(A) 0 - 200 mg/dL HDL 88 >=40 mg/dL LDL Cholesterol 136(A) 0 - 100 mg/dL Blood Venous blood specimen / Unknown Historical Provider LAB BLOOD ORDERABLES Miracle l Result * Pap Smear (02/21/2010) Pathologist [facility] Pap smear no interpretation abstracted Historical Provider HEALTH MAINTENANCE Final Result * HIV Screening (11/10/2005) [facility] HIV Screening abstracted Historical Provider HEALTH MAINTENANCE Final Result from Last 3 Months or Most Recently Relevant to Health Maintenance Insurance * Guarantor: Fabio Tuttle Account Type Relation to Patient Date of Phone Billing Address Personal/Family Self 1980 [phone] (Work) [address] [place] [address] [facility] Advance Directives * Full Code [...] currently active code status orders. Care Teams Retail Security Professional Relationship Specialty Start Date End Date Pauline Mcconnell MD [address] [place] [address] PCP - General 11/13/00
--- OUTSIDE RECORDS SUMMARY | 2025-08-15 07:40 | XMS_ITS | Encounter Summary ---
Author Organization [facility] Address [address] [place] [address] Phone Care Team Providers Care Materials Buyer Name Role Phone Jair Eldridge MD Primary Care Provider [phone] Encounter Details Date Type Department Care Team (Late st Contact Info) Description 07/19/2024 Telephone [facility] Main Endoscopy [address] [place] [address] Adrienne Bro RN [address] [place] [address] [email or web address] Social History Tobacco Use Types Packs/Day Years [...] on filedocumented in this encounter Care Teams Materials Buyer Relationship Specialty Start Date End Date Jair Eldridge MD [address] [address] [email or web address] PCP - General Gastroenterology 05/16/24 documented as of this encounter Additional Source Comments The information contained in this document represents components of the legal health record. It is not the complete legal health record.[facility]
--- OUTSIDE RECORDS SUMMARY | 2025-08-15 07:40 | XMS_ITS | Encounter Summary ---
Author Organization [facility] Address [address] [place] [address] Phone Care Team Providers Care Real Estate Rental Agent Name Role Phone Jair Eldridge MD Primary Care Provider [phone] Encounter Details Date Type Department Care Team (Late st Contact Info) Description 07/19/2024 Documentation [facility] Main Endoscopy [address] [place] [address] Adrienne Bro RN [address] [place] [address] [email or web address] Social History Tobacco Use Types Packs/Day Years [...] on filedocumented in this encounter Care Teams Real Estate Rental Agent Relationship Specialty Start Date End Date Jair Eldridge MD [address] [place] [phone] [email or web address] PCP - General Gastroenterology 05/16/24 documented as of this encounter Additional Source Comments The information contained in this document represents components of the legal health record. It is not the complete legal health record.[facility]
--- OUTSIDE RECORDS SUMMARY | 2025-08-15 07:40 | XMS_ITS ---
Author Name [facility] Organization Unknown Care Team Organization Name Specialty Phone Email Start Date End Da te [facility] Pauline Mcconnell Primary Care 04/23/2023 4 [facility] Pauline Mcconnell Primary Care 08/26/2022 4
--- OUTSIDE RECORDS SUMMARY | 2025-08-15 07:40 | XMS_ITS | Encounter Summary ---
Author Organization [facility] Address [address] [place] [address] Phone Care Team Providers Care Outreach Worker Name Role Phone Jair Eldridge MD Primary Care Provider [phone] Encounter Details Date Type Department Care Team (Late st Contact Info) Description 07/19/2024 Documentation [facility] Main Endoscopy [address] [place] [address] Adrienne Bro RN [address] [place] [address] [email or web address] Social History Tobacco Use Types Packs/Day Years [...] on filedocumented in this encounter Care Teams Outreach Worker Relationship Specialty Start Date End Date Jair Eldridge MD [address] [place] [phone] [email or web address] PCP - General Gastroenterology 05/16/24 documented as of this encounter Additional Source Comments The information contained in this document represents components of the legal health record. It is not the complete legal health record.[facility]
--- OUTSIDE RECORDS SUMMARY | 2025-08-15 07:40 | XMS_ITS | Encounter Summary ---
Author Organization [facility] Address [address] [place] [address] Phone Care Team Providers Care Job Counselor Name Role Phone Jair Eldridge MD Primary Care Provider [phone] Encounter Details Date Type Department Care Team (Late st Contact Info) Description 06/30/2024 Procedure Pass [facility] Endoscopy Admitting Dept Virtual Department [address] [place] [address] Social History Tobacco Use Types Packs/Day Years [...] on filedocumented in this encounter Care Teams Job Counselor Relationship Specialty Start Date End Date Jair Eldridge MD [address] [address] PCP - General Gastroenterology 05/16/24 documented as of this encounter Additional Source Comments The information contained in this document represents components of the legal health record. It is not the complete legal health record.[facility]
== END 2025-08-15 08:06 | disposition home or self-care (01) ==
LOC: HO.HSMS 07:38
PROVIDERS: PCP Internal Medicine; Visit Provider Psychiatry & Neurology Neurology
DX: G43.719 Chronic migraine without aura, intractable, without status migrainosus (principal)
CPT/HCPCS: 64615

== ENCOUNTER → 2025-08-15 07:37 | Outpatient (BNVA) | payer OTHER, SELFPAY | PROVIDERS: PCP Internal Medicine; Visit Provider Psychiatry & Neurology Neurology | DX: G43.719 Chronic migraine without aura, intractable, without status migrainosus (principal) | CPT/HCPCS: 64615; 99211; J0585 ==